=== PATIENT | female | born 1950 | race Caucasian/White ===

== ENCOUNTER → 2019-02-12 | Outpatient (CLI) | payer MEDICARE | END | disposition home or self-care (01) | LOC: OIH 08:25 | PROVIDERS: ATTEND Internal Medicine | DX: J44.9 Chronic obstructive pulmonary disease, unspecified (principal); I51.7 Cardiomegaly | CPT/HCPCS: 71046 ==

== ENCOUNTER → 2019-05-28 | Outpatient (CLI) | payer MEDICARE ==
[~2019-05-28] MED LIST: ALBUTEROL SULFATE 0.083% 2.5 MG/3 ML INH IH ONE
== END | disposition home or self-care (01) ==
LOC: RESP 08:53
PROVIDERS: ATTEND Internal Medicine
DX: J44.9 Chronic obstructive pulmonary disease, unspecified (principal); F17.200 Nicotine dependence, unspecified, uncomplicated
CPT/HCPCS: 94060; 94727; 94729

== ENCOUNTER 2020-08-20 10:48 | Observation (INO) | payer MEDICARE ==
[~2020-08-20] VITALS: Ht 162.6 cm; Wt 119.8 kg
[2020-08-20 11:20] LABS: BASOPHILS % (AUTO) 0.5 % (0.0-5.0); EOSINOPHILS % (AUTO) 1.1 % (0.0-8.0); HEMATOCRIT 36.3 % (36-48); LYMPHOCYTES % (AUTO) 8.3 % (21.0-51.0); MEAN CORPUSCULAR HEMOGLOBIN 23.2 pg (27.0-33.0); MEAN CORPUSCULAR HGB CONC 29.8 g/dL (32.0-36.0); MEAN CORPUSCULAR VOLUME 77.9 fL (79-99); NEUTROPHILS % (AUTO) 81.9 % (40.0-77.0); PLATELET COUNT (AUTO) 236 K/uL (130-400); RED BLOOD CELL COUNT(AUTO) 4.66 MIL/uL (4.00-5.50); RED CELL DISTRIBUTION WIDTH 16.6 % (11.0-15.5); WHITE BLOOD COUNT (AUTO) 8.1 K/uL (4.8-10.8)
[2020-08-20 11:40] LABS: ALBUMIN 3.4 g/dL (3.5-5.0); BILIRUBIN,TOTAL 0.5 mg/dL (0.2-1.0); CREATININE 1.1 mg/dL (0.5-1.5); POTASSIUM 4.3 mmol/L (3.5-5.1); TOTAL PROTEIN, SERUM 7.3 g/dL (6.0-8.3)
[2020-08-20 11:44] LABS: B-TYPE NATRIURETIC PEPTIDE 118 pg/mL (0-100)
[2020-08-20] MEDS ORDERED: METHYLPREDNISOLONE SOD SUCC 125MG/2ML VIAL ONE (11:55)
[2020-08-20] MEDS ORDERED: ALBUTEROL INHALER 90MCG/INH IH ONE (11:55)
[2020-08-20] MEDS ORDERED: FUROSEMIDE 10 MG/ML 2ML VIAL ONE (13:11)
[2020-08-20] MEDS: CEFTRIAXONE SODIUM 1 GM IVP SCH (14:15)
[2020-08-20 14:29] LABS: HEMOGLOBIN A1C 6.1 % (4.0-6.0)
[2020-08-20] MEDS ORDERED: ALBUTEROL INHALER 90MCG/INH IH PRN (14:30)
[2020-08-20 14:44] LABS: MAGNESIUM 1.7 mg/dL (1.80-2.40); THYROID STIMULATING HORMONE 6.02 uIU/mL (0.36-3.74)
[2020-08-20 14:56] LABS: % IRON SATURATION 6.2 % (22-44)
[2020-08-20] MEDS ORDERED: MAGNESIUM 2GM PREMIX 50ML 50 ML IV SCH (15:00)
[2020-08-20] MEDS ORDERED: MAGNESIUM 2GM PREMIX 50ML 50 ML IV ONE (15:16)
[2020-08-20] MEDS ORDERED: CEFTRIAXONE SODIUM 1 GM ONE (15:16)
[2020-08-20] MEDS: INSULIN HUMULIN R 100 UNIT/ML 3ML SQ SCH ×2 (16:30→21:00)
[2020-08-20] MEDS: FUROSEMIDE 10 MG/ML 2ML VIAL IV SCH (19:00)
[2020-08-20] MEDS ORDERED: DOXYCYCLINE HYCLATE 100 MG TABLET PO ONE (20:26)
[2020-08-20] MEDS ORDERED: ATORVASTATIN CALCIUM 20 MG TABLET ONE (20:26)
[2020-08-20] MEDS ORDERED: PANTOPRAZOLE SODIUM 40 MG TABLET.DR ONE (20:26)
[2020-08-20] MEDS ORDERED: INSULIN HUMULIN R 100 UNIT/ML 3ML ONE (20:28)
[2020-08-20] MEDS: ATORVASTATIN CALCIUM 20 MG TABLET PO SCH (21:00)
[2020-08-20] MEDS: PANTOPRAZOLE SODIUM 40 MG TABLET.DR PO SCH (21:00)
[2020-08-20] MEDS: APIXABAN 5 MG TABLET PO SCH (21:00)
[2020-08-20] MEDS: DOXYCYCLINE HYCLATE 100 MG TABLET PO SCH (21:00)
[2020-08-20 21:40] LABS: CREATININE 1.1 mg/dL (0.5-1.5); MAGNESIUM 2.3 mg/dL (1.80-2.40); POTASSIUM 4.6 mmol/L (3.5-5.1)
[2020-08-20 23:00] VITALS: BP 138/76
[2020-08-20] MEDS ORDERED: METF-444 PO (23:01)
[2020-08-20] MEDS ORDERED: UBID100C45 PO (23:01)
[2020-08-20] MEDS ORDERED: VIT1TABL66 PO (23:01)
[2020-08-20] MEDS ORDERED: FLUT1BLS3 IH (23:01)
[2020-08-20] MEDS ORDERED: POTA20TA12 PO (23:01)
[2020-08-20] MEDS ORDERED: PRAV40TA3 PO (23:01)
[2020-08-20] MEDS ORDERED: SERT100T PO (23:01)
[2020-08-20] MEDS ORDERED: APIX5TAB PO (23:01)
[2020-08-20] MEDS ORDERED: OLME5TAB PO (23:01)
[2020-08-20] MEDS ORDERED: DILT180C86 PO (23:01)
[2020-08-20] MEDS ORDERED: THYROXINE PO (23:01)
[2020-08-21] MEDS ORDERED: DILTIAZEM HCL 120 MG CAP.SR.24H PO SCH (00:15)
[2020-08-21] MEDS ORDERED: DILTIAZEM HCL 180 MG CAP.SR.24H PO ONE (00:25)
[2020-08-21] MEDS ORDERED: DILTIAZEM HCL 180 MG CAP.SR.24H PO SCH ×3 (00:30→21:00)
[2020-08-21] MEDS ORDERED: PHARMACY COMMUNICATION MISC SCH (01:00)
[2020-08-21 04:00] VITALS: BP 134/65
[2020-08-21] MEDS: INSULIN HUMULIN R 100 UNIT/ML 3ML SQ SCH ×4 (05:48→21:00)
[2020-08-21] MEDS: FUROSEMIDE 10 MG/ML 2ML VIAL IV SCH ×2 (05:54→18:46)
[2020-08-21 06:16] LABS: BASOPHILS % (AUTO) 0.1 % (0.0-5.0); EOSINOPHILS % (AUTO) 0.1 % (0.0-8.0); HEMATOCRIT 34.9 % (36-48); LYMPHOCYTES % (AUTO) 3.5 % (21.0-51.0); MEAN CORPUSCULAR HEMOGLOBIN 22.8 pg (27.0-33.0); MEAN CORPUSCULAR HGB CONC 29.8 g/dL (32.0-36.0); MEAN CORPUSCULAR VOLUME 76.4 fL (79-99); MONOCYTES % (AUTO) 3.5 % (3.0-13.0); NEUTROPHILS % (AUTO) 92.3 % (40.0-77.0); PLATELET COUNT (AUTO) 253 K/uL (130-400); RED BLOOD CELL COUNT(AUTO) 4.57 MIL/uL (4.00-5.50); RED CELL DISTRIBUTION WIDTH 16.1 % (11.0-15.5); WHITE BLOOD COUNT (AUTO) 11.1 K/uL (4.8-10.8)
[2020-08-21 06:29] LABS: CREATININE 0.9 mg/dL (0.5-1.5); MAGNESIUM 2.2 mg/dL (1.80-2.40); POTASSIUM 4.6 mmol/L (3.5-5.1)
[2020-08-21 07:46] VITALS: BP 115/45
[2020-08-21] MEDS: PREDNISONE 20 MG TABLET PO SCH (08:59)
[2020-08-21] MEDS: DOXYCYCLINE HYCLATE 100 MG TABLET PO SCH ×2 (08:59→22:10)
[2020-08-21] MEDS: PANTOPRAZOLE SODIUM 40 MG TABLET.DR PO SCH ×2 (08:59→22:10)
[2020-08-21] MEDS: SERTRALINE HCL 50 MG TABLET PO SCH (08:59)
[2020-08-21] MEDS: APIXABAN 5 MG TABLET PO SCH ×2 (09:00→22:09)
[2020-08-21] MEDS: FLUTICASONE/VILANTEROL 1 EACH AER.POW.BA IH SCH (09:00)
[2020-08-21 11:23] VITALS: BP 121/46
[2020-08-21] MEDS: CEFTRIAXONE SODIUM 1 GM IVP SCH (15:11)
[2020-08-21] MEDS ORDERED: NON-FORMULARY MEDICATION 1 EACH (Fluticasone/Umeclidin/Vilanter (Trelegy Ellipta 100-62.5- IH SCH (16:15)
[2020-08-21 16:36] VITALS: BP 148/58
[2020-08-21 20:00] VITALS: BP 134/63
[2020-08-21] MEDS ORDERED: APIXABAN 5 MG TABLET PO SCH (21:00)
[2020-08-21] MEDS ORDERED: NON-FORMULARY MEDICATION 1 EACH (Pravastatin Sodium 40 MG) PO SCH (21:00)
[2020-08-21] MEDS ORDERED: NON-FORMULARY MEDICATION 1 EACH (Diltiazem HCl (Diltiazem ER) 180 MG) PO SCH (21:00)
[2020-08-21] MEDS ORDERED: THYROXINE PO SCH (21:00)
[2020-08-21] MEDS: ATORVASTATIN CALCIUM 20 MG TABLET PO SCH (22:10)
[2020-08-22] VITALS: BP 134/56
[2020-08-22 04:00] VITALS: BP 135/68
[2020-08-22] MEDS: FUROSEMIDE 10 MG/ML 2ML VIAL IV SCH (06:11)
[2020-08-22] MEDS: INSULIN HUMULIN R 100 UNIT/ML 3ML SQ SCH ×2 (07:30→11:30)
[2020-08-22 08:24] VITALS: BP 123/63
[2020-08-22] MEDS: SERTRALINE HCL 50 MG TABLET PO SCH (08:57)
[2020-08-22] MEDS: DOXYCYCLINE HYCLATE 100 MG TABLET PO SCH (08:57)
[2020-08-22] MEDS: PANTOPRAZOLE SODIUM 40 MG TABLET.DR PO SCH (08:57)
[2020-08-22] MEDS: PREDNISONE 20 MG TABLET PO SCH (08:58)
[2020-08-22] MEDS: APIXABAN 5 MG TABLET PO SCH (08:58)
[2020-08-22] MEDS: FLUTICASONE/VILANTEROL 1 EACH AER.POW.BA IH SCH (08:59)
[2020-08-22] MEDS ORDERED: LOSARTAN 50 MG TABLET PO SCH (09:00)
[2020-08-22] MEDS ORDERED: SERTRALINE HCL 150 MG PO SCH (09:00)
[2020-08-22 11:16] VITALS: BP 119/58
[2020-08-22] MEDS ORDERED: FURO40TA7 PO (11:52)
== END 2020-08-22 13:58 | disposition home or self-care (01) ==
LOC: EDH 10:48 → EDHIP 14:06 → 4CH 22:42
PROVIDERS: ADMIT Internal Medicine; ATTEND Internal Medicine
DX: I13.0 Hypertensive heart and chronic kidney disease with heart failure and stage 1 through stage 4 chronic kidney disease, or unspecified chronic kidney disease (principal); E11.22 Type 2 diabetes mellitus with diabetic chronic kidney disease; I50.33 Acute on chronic diastolic (congestive) heart failure; N18.30 Chronic kidney disease, stage 3 unspecified; Z20.828 Contact with and (suspected) exposure to other viral communicable diseases; J44.1 Chronic obstructive pulmonary disease with (acute) exacerbation; E87.2 Acidosis; J96.01 Acute respiratory failure with hypoxia; I48.20 Chronic atrial fibrillation, unspecified; I44.7 Left bundle-branch block, unspecified; E78.5 Hyperlipidemia, unspecified; E03.9 Hypothyroidism, unspecified; E66.01 Morbid (severe) obesity due to excess calories; T38.0X5A Adverse effect of glucocorticoids and synthetic analogues, initial encounter; E11.65 Type 2 diabetes mellitus with hyperglycemia; F17.200 Nicotine dependence, unspecified, uncomplicated; Z79.84 Long term (current) use of oral hypoglycemic drugs; Z79.51 Long term (current) use of inhaled steroids; Z79.899 Other long term (current) drug therapy; Z79.01 Long term (current) use of anticoagulants; Z68.42 Body mass index [BMI] 45.0-49.9, adult; X58.XXXA Exposure to other specified factors, initial encounter; Y93.89 Activity, other specified; Y92.89 Other specified places as the place of occurrence of the external cause
CPT/HCPCS: 36415; 71045 ×2; 80048 ×2; 80061; 82728; 82948 ×8; 83036; 83540; 83550; 83605; 83735 ×3; 84439; 84443; 84481; 84484 ×2; 85025; 87040; 93005; 93306; 93356; 93970; 96374; 96375; 96376 ×2; 99285; G0378 ×46; J0696 ×2; J1815; J1940 ×4; J2930; J3475; U0003

== ENCOUNTER 2021-03-29 12:13 | Observation (INO) | payer MEDICARE ==
[~2021-03-29] VITALS: Ht 162.6 cm; Wt 123.2 kg
[~2021-03-29 12:13] MED LIST changes: -ALBUTEROL SULFATE 0.083% 2.5 MG/3 ML INH IH ONE; +APIX5TAB PO; +DILT180C86 PO; +FLUT1BLS3 IH; +FURO40TA7 PO; +METF-444 PO; +OLME5TAB PO; +POTA20TA12 PO; +PRAV40TA3 PO; +SERT100T PO; +THYROXINE PO; +UBID100C45 PO; +VIT1TABL66 PO
[2021-03-29 14:57] VITALS: BP 119/87
[2021-03-29] MEDS ORDERED: ALBUTEROL INHALER 90MCG/INH IH PRN (15:30)
[2021-03-29 15:54] LABS: BASOPHILS % (AUTO) 0.5 % (0.0-5.0); EOSINOPHILS % (AUTO) 3.6 % (0.0-8.0); LYMPHOCYTES % (AUTO) 8.6 % (21.0-51.0); MEAN CORPUSCULAR HEMOGLOBIN 23.8 pg (27.0-33.0); MEAN CORPUSCULAR HGB CONC 29.8 g/dL (32.0-36.0); MEAN CORPUSCULAR VOLUME 79.9 fL (79-99); MONOCYTES % (AUTO) 6.9 % (3.0-13.0); NEUTROPHILS % (AUTO) 79.9 % (40.0-77.0); PLATELET COUNT (AUTO) 310 K/uL (130-400); RED BLOOD CELL COUNT(AUTO) 5.51 MIL/uL (4.00-5.50)
[2021-03-29 16:20] VITALS: BP 147/101
[2021-03-29 16:20] LABS: B-TYPE NATRIURETIC PEPTIDE 762 pg/mL (0-100)
[2021-03-29] MEDS ORDERED: NITROGLYCERIN 1GM OINT 1 INCH/1GM TD ONE (16:30)
[2021-03-29 16:46] LABS: POTASSIUM 3.7 mmol/L (3.5-5.1)
[2021-03-29 16:57] LABS: BILIRUBIN,TOTAL 0.9 mg/dL (0.2-1.0); CRP QUANTITATIVE 11.3 mg/L (0.00-9.0); TOTAL PROTEIN, SERUM 7.5 g/dL (6.0-8.3)
[2021-03-29 18:55] VITALS: BP 128/66
[2021-03-29 20:00] VITALS: BP 130/64
[2021-03-29] MEDS ORDERED: KCL 20 MEQ ERTAB PO PRN (20:30)
[2021-03-29] MEDS ORDERED: POTASSIUM CHLORIDE 10% ELIXIR 20 MEQ/15 ML UDCUP PO PRN (20:30)
[2021-03-29] MEDS ORDERED: POTASSIUM CHLORIDE 20MEQ/100ML 100 ML IV PRN (20:30)
[2021-03-29] MEDS ORDERED: FUROSEMIDE 40MG VIAL IV SCH (20:30)
[2021-03-29] MEDS ORDERED: LIDOCAINE HCL-MPF 1% 2ML VIAL IJ PRN (20:30)
[2021-03-29 22:00] VITALS: BP 130/63
[2021-03-30] VITALS (11 sets, daily range): BP systolic 111–147; BP diastolic 51–69
[2021-03-30] MEDS ORDERED: ACETAMINOPHEN 325 MG TAB PO PRN (02:30)
[2021-03-30 08:01] LABS: BASOPHILS % (AUTO) 0.4 % (0.0-5.0); EOSINOPHILS % (AUTO) 1.6 % (0.0-8.0); HEMATOCRIT 36.4 % (36-48); MEAN CORPUSCULAR HEMOGLOBIN 23.7 pg (27.0-33.0); MEAN CORPUSCULAR HGB CONC 29.1 g/dL (32.0-36.0); MEAN CORPUSCULAR VOLUME 81.4 fL (79-99); NEUTROPHILS % (AUTO) 80.6 % (40.0-77.0); PLATELET COUNT (AUTO) 217 K/uL (130-400); RED BLOOD CELL COUNT(AUTO) 4.47 MIL/uL (4.00-5.50); RED CELL DISTRIBUTION WIDTH 16.8 % (11.0-15.5); WHITE BLOOD COUNT (AUTO) 8.5 K/uL (4.8-10.8)
[2021-03-30 08:24] LABS: ALBUMIN 3.1 g/dL (3.5-5.0); BILIRUBIN,TOTAL 0.8 mg/dL (0.2-1.0); CREATININE 0.9 mg/dL (0.5-1.5); POTASSIUM 3.5 mmol/L (3.5-5.1); TOTAL PROTEIN, SERUM 6.3 g/dL (6.0-8.3)
[2021-03-30 09:48] LABS: INR 1.19 (0.85-1.15); PROTHROMBIN TIME 12.8 SEC (9.6-11.6)
[2021-03-30] MEDS: ASPIRIN 81 MG EC TAB PO SCH (10:02)
[2021-03-30] MEDS: FUROSEMIDE 40 MG TABLET PO SCH ×2 (10:02→21:04)
[2021-03-30] MEDS: ENOXAPARIN SODIUM 40 MG/0.4 ML SYRINGE SQ SCH (10:03)
[2021-03-31] VITALS: BP 146/59
[2021-03-31 04:00] VITALS: BP 108/69
[2021-03-31 08:00] VITALS: BP 85/64
[2021-03-31] MEDS: ENOXAPARIN SODIUM 40 MG/0.4 ML SYRINGE SQ SCH (09:11)
[2021-03-31] MEDS: FUROSEMIDE 40 MG TABLET PO SCH (09:11)
[2021-03-31] MEDS: ASPIRIN 81 MG EC TAB PO SCH (09:11)
== END 2021-03-31 11:00 | disposition home or self-care (01) ==
LOC: EDH 12:13 → EDHIP 17:07 → 3BH 03-30 22:04
PROVIDERS: ADMIT Internal Medicine; ATTEND Internal Medicine
DX: J44.1 Chronic obstructive pulmonary disease with (acute) exacerbation (principal); Z20.822 Contact with and (suspected) exposure to COVID-19; I11.0 Hypertensive heart disease with heart failure; I50.31 Acute diastolic (congestive) heart failure; I48.91 Unspecified atrial fibrillation; I25.10 Atherosclerotic heart disease of native coronary artery without angina pectoris; E03.9 Hypothyroidism, unspecified; E87.70 Fluid overload, unspecified; E66.9 Obesity, unspecified; E78.5 Hyperlipidemia, unspecified; E11.9 Type 2 diabetes mellitus without complications; E78.00 Pure hypercholesterolemia, unspecified; F17.200 Nicotine dependence, unspecified, uncomplicated; R09.02 Hypoxemia; Z79.84 Long term (current) use of oral hypoglycemic drugs; Z68.42 Body mass index [BMI] 45.0-49.9, adult
CPT/HCPCS: 36415; 71045; 80053; 82550; 83874; 83880; 84484; 85025; 85610; 86140; 87635; 93005; 96365; 96366; 96372; C9803; G0378; J1650; J1940

== ENCOUNTER 2021-04-18 02:05 | Observation (INO) | payer MEDICARE ==
[~2021-04-18] VITALS: Ht 162.6 cm; Wt 117.5 kg
[2021-04-18] VITALS (8 sets, daily range): BP systolic 105–144; BP diastolic 47–87
[2021-04-18 02:48] LABS: BASOPHILS % (AUTO) 0.6 % (0.0-5.0); EOSINOPHILS % (AUTO) 1.3 % (0.0-8.0); HEMATOCRIT 38.7 % (36-48); LYMPHOCYTES % (AUTO) 8.2 % (21.0-51.0); MEAN CORPUSCULAR HEMOGLOBIN 23.1 pg (27.0-33.0); MEAN CORPUSCULAR HGB CONC 29.5 g/dL (32.0-36.0); MEAN CORPUSCULAR VOLUME 78.5 fL (79-99); NEUTROPHILS % (AUTO) 82.6 % (40.0-77.0); PLATELET COUNT (AUTO) 366 K/uL (130-400); RED BLOOD CELL COUNT(AUTO) 4.93 MIL/uL (4.00-5.50); RED CELL DISTRIBUTION WIDTH 16.2 % (11.0-15.5); WHITE BLOOD COUNT (AUTO) 8.7 K/uL (4.8-10.8)
[2021-04-18] MEDS ORDERED: SOLU-MEDROL 125MG VIAL ONE (02:53)
[2021-04-18] MEDS ORDERED: SOLU-MEDROL 125MG VIAL IVP ONE (03:00)
[2021-04-18 03:05] LABS: ALBUMIN 3.1 g/dL (3.5-5.0); TOTAL PROTEIN, SERUM 6.9 g/dL (6.0-8.3)
[2021-04-18 03:21] LABS: APPEARANCE,URINE Clear (CLEAR); BILIRUBIN,URINE Negative (NEGATIVE); COLOR,URINE Yellow (YELLOW); GLUCOSE, URINE (UA) Negative (NEGATIVE); KETONES,URINE Negative (NEGATIVE); LEUKOCYTE ESTERASE ,URINE Negative (NEGATIVE); NITRATE,URINE Negative (NEGATIVE); OCCULT BLOOD,URINE Negative (NEGATIVE); PROTEIN,URINE Negative (NEGATIVE)
[2021-04-18 03:23] LABS: ABG BASE EXCESS 11.1 mmol/L (-2.0-3.0); ABG HCO3 37.9 mmol/L (21.0-28.0); ABG OXYGEN SATURATION 95.6 % (95.0-99.0); ABG PCO2 58 mmHg (32-45)
[2021-04-18 03:40] LABS: B-TYPE NATRIURETIC PEPTIDE 401 pg/mL (0-100)
[2021-04-18] MEDS ORDERED: FURO40TA5 PO (03:43)
[2021-04-18] MEDS ORDERED: DILT120T PO (03:43)
[2021-04-18] MEDS ORDERED: VIT1TABL66 PO (03:43)
[2021-04-18] MEDS ORDERED: METF-444 PO (03:43)
[2021-04-18] MEDS ORDERED: SERT100T PO (03:43)
[2021-04-18] MEDS ORDERED: OLME5TAB PO (03:43)
[2021-04-18] MEDS ORDERED: FLUT1BLS3 IH (03:43)
[2021-04-18] MEDS ORDERED: POTA20TA12 PO (03:43)
[2021-04-18] MEDS ORDERED: UBID100C10 PO (03:43)
[2021-04-18] MEDS ORDERED: PRAV40TA3 PO (03:43)
[2021-04-18] MEDS ORDERED: APIX5TAB PO (03:43)
[2021-04-18] MEDS ORDERED: FUROSEMIDE 40MG VIAL IV ONE (05:30)
[2021-04-18] MEDS ORDERED: FUROSEMIDE 40MG VIAL ONE (05:43)
[2021-04-18 07:05] LABS: BASOPHILS % (AUTO) 0.1 % (0.0-5.0); HEMATOCRIT 39.2 % (36-48); LYMPHOCYTES % (AUTO) 2.3 % (21.0-51.0); MEAN CORPUSCULAR HEMOGLOBIN 22.8 pg (27.0-33.0); MEAN CORPUSCULAR HGB CONC 29.1 g/dL (32.0-36.0); MEAN CORPUSCULAR VOLUME 78.6 fL (79-99); NEUTROPHILS % (AUTO) 96.4 % (40.0-77.0); PLATELET COUNT (AUTO) 310 K/uL (130-400); RED BLOOD CELL COUNT(AUTO) 4.99 MIL/uL (4.00-5.50); RED CELL DISTRIBUTION WIDTH 16.2 % (11.0-15.5); WHITE BLOOD COUNT (AUTO) 9.5 K/uL (4.8-10.8)
[2021-04-18 07:41] LABS: ALBUMIN 3.1 g/dL (3.5-5.0); POTASSIUM 3.5 mmol/L (3.5-5.1); TOTAL PROTEIN, SERUM 6.8 g/dL (6.0-8.3)
[2021-04-18] MEDS ORDERED: IPRATROPIUM/ALBUTEROL SULFATE 3 ML SOLUTION IH ONE (09:45)
[2021-04-18] MEDS: IPRATROPIUM/ALBUTEROL SULFATE 3 ML SOLUTION IH SCH ×4 (09:52→22:41)
[2021-04-18] MEDS: INSULIN HUMULIN R 100 UNIT/ML 3ML SQ SCH ×3 (12:33→20:43)
[2021-04-18] MEDS: ATORVASTATIN 10 MG TABLET PO SCH (20:25)
[2021-04-18] MEDS: DILTIAZEM 180MG SR CAP PO SCH (20:25)
[2021-04-18] MEDS: APIXABAN 5 MG TABLET PO SCH (20:26)
[2021-04-19] VITALS (7 sets, daily range): BP systolic 97–144; BP diastolic 48–67
[2021-04-19] MEDS: IPRATROPIUM/ALBUTEROL SULFATE 3 ML SOLUTION IH SCH ×8 (02:23→22:45)
[2021-04-19 05:28] LABS: HEMATOCRIT 36.4 % (36-48); MEAN CORPUSCULAR HEMOGLOBIN 22.9 pg (27.0-33.0); MEAN CORPUSCULAR VOLUME 81.8 fL (79-99); RED BLOOD CELL COUNT(AUTO) 4.45 MIL/uL (4.00-5.50); WHITE BLOOD COUNT (AUTO) 9.7 K/uL (4.8-10.8)
[2021-04-19] MEDS: INSULIN HUMULIN R 100 UNIT/ML 3ML SQ SCH ×4 (05:33→20:07)
[2021-04-19 05:48] LABS: CREATININE 0.9 mg/dL (0.5-1.5); POTASSIUM 3.7 mmol/L (3.5-5.1)
[2021-04-19] MEDS ORDERED: DILTIAZEM 50MG VIAL IV ONE (06:20)
[2021-04-19] MEDS: FUROSEMIDE 40MG VIAL IV SCH ×2 (06:24→18:19)
[2021-04-19] MEDS ORDERED: IPRATROPIUM/ALBUTEROL SULFATE 3 ML SOLUTION IH PRN (06:30)
[2021-04-19] MEDS ORDERED: BENZONATATE 100 MG CAPSULE PO PRN (06:30)
[2021-04-19] MEDS: DILTIAZEM 25MG INJ IVP SCH ×2 (06:30→07:04)
[2021-04-19] MEDS: BERBERINE HCL PO SCH (09:00)
[2021-04-19] MEDS ORDERED: FUROSEMIDE 40 MG TABLET PO SCH (09:00)
[2021-04-19] MEDS: [UNRECOGNIZED DRUG - OTHER] PO SCH (09:00)
[2021-04-19] MEDS: UBIDECARENONE 100 MG PO SCH (09:00)
[2021-04-19] MEDS: **HM**(Fluticasone/Umeclidin/Vilanter (Trelegy Ellipta 100-62.5- IH SCH (09:00)
[2021-04-19] MEDS: HOPS PO SCH (09:00)
[2021-04-19] MEDS: VIT D3 PO SCH (09:00)
[2021-04-19] MEDS: METFORMIN HCL 500 MG TABLET PO SCH (09:27)
[2021-04-19] MEDS: SERTRALINE HCL 50 MG TABLET PO SCH (09:27)
[2021-04-19] MEDS: APIXABAN 5 MG TABLET PO SCH ×2 (09:27→20:06)
[2021-04-19] MEDS: LOSARTAN 25 MG TABLET PO SCH (09:28)
[2021-04-19] MEDS: KCL 20 MEQ ERTAB PO SCH (09:28)
[2021-04-19] MEDS ORDERED: ACETAMINOPHEN 325 MG TAB PO PRN (11:00)
[2021-04-19] MEDS: SOLU-MEDROL 125MG VIAL IVP SCH (20:05)
[2021-04-19] MEDS: DILTIAZEM 180MG SR CAP PO SCH (20:06)
[2021-04-19] MEDS: ATORVASTATIN 10 MG TABLET PO SCH (20:06)
[2021-04-20] VITALS: BP 137/68
[2021-04-20 04:00] VITALS: BP 134/50
[2021-04-20] MEDS: FUROSEMIDE 40MG VIAL IV SCH ×2 (05:08→18:24)
[2021-04-20] MEDS: INSULIN HUMULIN R 100 UNIT/ML 3ML SQ SCH ×4 (06:03→21:00)
[2021-04-20] MEDS ORDERED: FUROSEMIDE 40MG VIAL IV SCH (07:00)
[2021-04-20 07:30] VITALS: BP 126/52
[2021-04-20] MEDS: IPRATROPIUM/ALBUTEROL SULFATE 3 ML SOLUTION IH SCH ×4 (07:54→22:32)
[2021-04-20] MEDS: [UNRECOGNIZED DRUG - OTHER] PO SCH (09:00)
[2021-04-20] MEDS: HOPS PO SCH (09:00)
[2021-04-20] MEDS: VIT D3 PO SCH (09:00)
[2021-04-20] MEDS: UBIDECARENONE 100 MG PO SCH (09:00)
[2021-04-20] MEDS: BERBERINE HCL PO SCH (09:00)
[2021-04-20] MEDS: **HM**(Fluticasone/Umeclidin/Vilanter (Trelegy Ellipta 100-62.5- IH SCH (09:00)
[2021-04-20] MEDS: METFORMIN HCL 500 MG TABLET PO SCH (09:12)
[2021-04-20] MEDS: LOSARTAN 25 MG TABLET PO SCH (09:12)
[2021-04-20] MEDS: APIXABAN 5 MG TABLET PO SCH ×2 (09:13→21:23)
[2021-04-20] MEDS: SERTRALINE HCL 50 MG TABLET PO SCH (09:15)
[2021-04-20] MEDS: SOLU-MEDROL 125MG VIAL IVP SCH ×2 (09:16→21:23)
[2021-04-20] MEDS: KCL 20 MEQ ERTAB PO SCH (09:16)
[2021-04-20 11:00] VITALS: BP 132/69
[2021-04-20 15:42] VITALS: BP 124/55
[2021-04-20 19:00] VITALS: BP 124/54
[2021-04-20] MEDS: ATORVASTATIN 10 MG TABLET PO SCH (21:23)
[2021-04-20] MEDS: DILTIAZEM 180MG SR CAP PO SCH (21:23)
[2021-04-21 00:02] VITALS: BP 105/66
[2021-04-21] MEDS: IPRATROPIUM/ALBUTEROL SULFATE 3 ML SOLUTION IH SCH ×4 (02:26→13:33)
[2021-04-21 04:24] VITALS: BP 129/61
[2021-04-21] MEDS: FUROSEMIDE 40MG VIAL IV SCH (05:44)
[2021-04-21] MEDS: INSULIN HUMULIN R 100 UNIT/ML 3ML SQ SCH ×3 (05:45→11:47)
[2021-04-21 07:30] VITALS: BP 111/74
[2021-04-21] MEDS: [UNRECOGNIZED DRUG - OTHER] PO SCH (09:00)
[2021-04-21] MEDS: HOPS PO SCH (09:00)
[2021-04-21] MEDS: UBIDECARENONE 100 MG PO SCH (09:00)
[2021-04-21] MEDS: BERBERINE HCL PO SCH (09:00)
[2021-04-21] MEDS: VIT D3 PO SCH (09:00)
[2021-04-21] MEDS ORDERED: SOLU-MEDROL 40MG VIAL IVP SCH (09:00)
[2021-04-21] MEDS: **HM**(Fluticasone/Umeclidin/Vilanter (Trelegy Ellipta 100-62.5- IH SCH (09:00)
[2021-04-21] MEDS: SERTRALINE HCL 50 MG TABLET PO SCH (10:04)
[2021-04-21] MEDS: LOSARTAN 25 MG TABLET PO SCH (10:04)
[2021-04-21] MEDS: METFORMIN HCL 500 MG TABLET PO SCH (10:04)
[2021-04-21] MEDS: APIXABAN 5 MG TABLET PO SCH (10:04)
[2021-04-21] MEDS: KCL 20 MEQ ERTAB PO SCH (10:05)
[2021-04-21 11:00] VITALS: BP 129/57
== END 2021-04-21 14:15 | disposition home or self-care (01) ==
LOC: EDH 02:05 → EDHIP 04:58 → 3DH 08:11
PROVIDERS: ADMIT Internal Medicine; ATTEND Internal Medicine
DX: J96.91 Respiratory failure, unspecified with hypoxia (principal); Z20.822 Contact with and (suspected) exposure to COVID-19; I11.0 Hypertensive heart disease with heart failure; I50.32 Chronic diastolic (congestive) heart failure; J44.1 Chronic obstructive pulmonary disease with (acute) exacerbation; I48.0 Paroxysmal atrial fibrillation; I25.10 Atherosclerotic heart disease of native coronary artery without angina pectoris; E11.9 Type 2 diabetes mellitus without complications; E66.9 Obesity, unspecified; E03.9 Hypothyroidism, unspecified; E78.5 Hyperlipidemia, unspecified; E87.70 Fluid overload, unspecified; F17.200 Nicotine dependence, unspecified, uncomplicated; Z79.01 Long term (current) use of anticoagulants; Z90.710 Acquired absence of both cervix and uterus; Z99.81 Dependence on supplemental oxygen; Z79.84 Long term (current) use of oral hypoglycemic drugs; Z68.41 Body mass index [BMI] 40.0-44.9, adult
CPT/HCPCS: 36415 ×2; 36600; 71045 ×2; 80048; 80053 ×2; 81003; 82550; 82803; 82948 ×13; 83880; 84484; 85025 ×2; 85027; 87635; 93005; 94640 ×17; 94660; 94664 ×2; 94760 ×2; 96374; 96375; 96376 ×3; 99285; C9803; G0378 ×76; J1815 ×2; J1940 ×7; J2920; J2930 ×4; J3490 ×2

== ENCOUNTER 2021-06-15 11:26 | Inpatient (IN) | payer MEDICARE ==
[~2021-06-15] VITALS: Ht 160 cm; Wt 105.5 kg
[2021-06-15] MEDS: IPRATROPIUM/ALBUTEROL SULFATE 3 ML SOLUTION IH SCH (00:36)
[~2021-06-15 11:26] MED LIST changes: +DILT120T PO; -DILT180C86 PO; +FURO40TA5 PO; -FURO40TA7 PO; +POTA-193 PO; -POTA20TA12 PO; -THYROXINE PO; +UBID100C10 PO; -UBID100C45 PO
[2021-06-15 12:01] LABS: BASOPHILS % (AUTO) 0.6 % (0.0-5.0); EOSINOPHILS % (AUTO) 0.9 % (0.0-8.0); HEMATOCRIT 38.1 % (36-48); LYMPHOCYTES % (AUTO) 8.2 % (21.0-51.0); MEAN CORPUSCULAR HGB CONC 28.9 g/dL (32.0-36.0); MEAN CORPUSCULAR VOLUME 79.7 fL (79-99); MONOCYTES % (AUTO) 8.1 % (3.0-13.0); NEUTROPHILS % (AUTO) 81.9 % (40.0-77.0); PLATELET COUNT (AUTO) 231 K/uL (130-400); RED BLOOD CELL COUNT(AUTO) 4.78 MIL/uL (4.00-5.50); RED CELL DISTRIBUTION WIDTH 18.8 % (11.0-15.5); WHITE BLOOD COUNT (AUTO) 7.9 K/uL (4.8-10.8)
[2021-06-15 12:15] LABS: CREATININE 1.1 mg/dL (0.5-1.5)
[2021-06-15 12:17] LABS: INR 1.23 (0.85-1.15); PROTHROMBIN TIME 13.2 SEC (9.6-11.6)
[2021-06-15 12:24] LABS: ALBUMIN 3.6 g/dL (3.5-5.0); BILIRUBIN,TOTAL 0.9 mg/dL (0.2-1.0); TOTAL PROTEIN, SERUM 6.9 g/dL (6.0-8.3)
[2021-06-15 12:30] LABS: B-TYPE NATRIURETIC PEPTIDE 294 pg/mL (0-100)
[2021-06-15 13:30] LABS: ABG BASE EXCESS 8.1 mmol/L (-2.0-3.0); ABG HCO3 35.3 mmol/L (21.0-28.0); ABG OXYGEN SATURATION 72.2 % (95.0-99.0); ABG PCO2 59 mmHg (32-45)
[2021-06-15] MEDS ORDERED: SOLU-MEDROL 125MG VIAL IVP ONE (14:30)
[2021-06-15] MEDS ORDERED: IPRATROPIUM/ALBUTEROL SULFATE 3 ML SOLUTION IH ONE (14:30)
[2021-06-15] MEDS ORDERED: FUROSEMIDE 40MG VIAL IV ONE (17:00)
[2021-06-15] MEDS: CEFTRIAXONE 1G VIAL IVP SCH (17:00)
[2021-06-15] MEDS: SOLU-MEDROL 125MG VIAL IVP SCH (17:00)
[2021-06-15] MEDS ORDERED: FERR324T4 PO (18:46)
[2021-06-15] MEDS ORDERED: LEVO5TAB13 PO (18:46)
[2021-06-15] MEDS ORDERED: SERT-440 PO (18:46)
[2021-06-15] MEDS ORDERED: PRAV20TA4 PO (18:53)
[2021-06-15] MEDS ORDERED: LEVO125T11 PO (18:53)
[2021-06-15] MEDS ORDERED: FUROSEMIDE 40MG VIAL ONE (19:03)
[2021-06-15] MEDS: DILTIAZEM 180MG SR CAP PO SCH (22:19)
[2021-06-15 23:41] VITALS: BP 135/63
[2021-06-16] MEDS: SOLU-MEDROL 125MG VIAL IVP SCH ×3 (02:30→16:52)
[2021-06-16 04:02] VITALS: BP 127/54
[2021-06-16] MEDS ORDERED: ACETAMINOPHEN 325 MG TAB PO ONE (05:00)
[2021-06-16 05:40] LABS: HEMATOCRIT 37.1 % (36-48); MEAN CORPUSCULAR HEMOGLOBIN 22.7 pg (27.0-33.0); MEAN CORPUSCULAR HGB CONC 29.1 g/dL (32.0-36.0); MEAN CORPUSCULAR VOLUME 78.1 fL (79-99); PLATELET COUNT (AUTO) 225 K/uL (130-400); RED BLOOD CELL COUNT(AUTO) 4.75 MIL/uL (4.00-5.50); RED CELL DISTRIBUTION WIDTH 18.4 % (11.0-15.5); WHITE BLOOD COUNT (AUTO) 6.8 K/uL (4.8-10.8)
[2021-06-16 05:42] LABS: BASOPHILS % (AUTO) 0.1 % (0.0-5.0); EOSINOPHILS % (AUTO) 0.1 % (0.0-8.0); LYMPHOCYTES % (AUTO) 3.5 % (21.0-51.0); MONOCYTES % (AUTO) 0.7 % (3.0-13.0); NEUTROPHILS % (AUTO) 94.9 % (40.0-77.0)
[2021-06-16] MEDS ORDERED: DEXTROSE 50%-WATER 50 ML DISP.SYRIN IV PRN (06:00)
[2021-06-16] MEDS ORDERED: GLUCAGON 1MG KIT 1 MG ML IM PRN (06:00)
[2021-06-16] MEDS: IPRATROPIUM/ALBUTEROL SULFATE 3 ML SOLUTION IH SCH ×3 (06:19→18:50)
[2021-06-16] MEDS ORDERED: POTASSIUM CHLORIDE 20MEQ/100ML 100 ML IV PRN (06:30)
[2021-06-16] MEDS ORDERED: LIDOCAINE HCL-MPF 1% 2ML VIAL IV PRN (06:30)
[2021-06-16] MEDS ORDERED: POTASSIUM CHLORIDE 10% ELIXIR 20 MEQ/15 ML UDCUP PO PRN (06:30)
[2021-06-16 06:31] LABS: ALBUMIN 3.4 g/dL (3.5-5.0); BILIRUBIN,TOTAL 0.6 mg/dL (0.2-1.0); CREATININE 0.9 mg/dL (0.5-1.5); POTASSIUM 4.1 mmol/L (3.5-5.1); TOTAL PROTEIN, SERUM 6.8 g/dL (6.0-8.3)
[2021-06-16] MEDS: INSULIN HUMULIN R 100 UNIT/ML 3ML SQ SCH ×4 (06:42→19:58)
[2021-06-16 08:37] VITALS: BP 111/57
[2021-06-16] MEDS ORDERED: FUROSEMIDE 40MG VIAL IV SCH (09:00)
[2021-06-16] MEDS: HOPS PO SCH (09:00)
[2021-06-16] MEDS: VIT D3 PO SCH (09:00)
[2021-06-16] MEDS: [UNRECOGNIZED DRUG - OTHER] PO SCH (09:00)
[2021-06-16] MEDS: FUROSEMIDE 40 MG TABLET PO SCH (09:00)
[2021-06-16] MEDS: BERBERINE HCL PO SCH (09:00)
[2021-06-16] MEDS: METFORMIN HCL 500 MG TABLET PO SCH (09:37)
[2021-06-16] MEDS: KCL 20 MEQ ERTAB PO SCH (09:37)
[2021-06-16] MEDS: ENOXAPARIN SODIUM 40 MG/0.4 ML SYRINGE SQ SCH (09:39)
[2021-06-16 12:04] VITALS: BP 121/49
[2021-06-16 16:47] VITALS: BP 126/46
[2021-06-16] MEDS: CEFTRIAXONE 1G VIAL IVP SCH (16:52)
[2021-06-16 19:00] VITALS: BP 132/91
[2021-06-16] MEDS: DILTIAZEM 180MG SR CAP PO SCH (20:10)
[2021-06-17] VITALS: BP 136/54
[2021-06-17] MEDS: IPRATROPIUM/ALBUTEROL SULFATE 3 ML SOLUTION IH SCH ×3 (00:38→11:16)
[2021-06-17] MEDS: SOLU-MEDROL 125MG VIAL IVP SCH ×2 (01:12→08:09)
[2021-06-17] MEDS: ACETAMINOPHEN 325 MG TAB PO PRN (01:12)
[2021-06-17 04:00] VITALS: BP 156/70
[2021-06-17 04:19] LABS: BASOPHILS % (AUTO) 0.1 % (0.0-5.0); HEMATOCRIT 38.2 % (36-48); LYMPHOCYTES % (AUTO) 2.5 % (21.0-51.0); MEAN CORPUSCULAR HEMOGLOBIN 22.8 pg (27.0-33.0); MEAN CORPUSCULAR HGB CONC 28.5 g/dL (32.0-36.0); MEAN CORPUSCULAR VOLUME 79.9 fL (79-99); MONOCYTES % (AUTO) 3.4 % (3.0-13.0); NEUTROPHILS % (AUTO) 93.5 % (40.0-77.0); PLATELET COUNT (AUTO) 241 K/uL (130-400); RED BLOOD CELL COUNT(AUTO) 4.78 MIL/uL (4.00-5.50); RED CELL DISTRIBUTION WIDTH 18.6 % (11.0-15.5)
[2021-06-17 04:38] LABS: ALBUMIN 3.3 g/dL (3.5-5.0); BILIRUBIN,TOTAL 0.5 mg/dL (0.2-1.0); CREATININE 0.9 mg/dL (0.5-1.5); POTASSIUM 4.4 mmol/L (3.5-5.1); TOTAL PROTEIN, SERUM 6.7 g/dL (6.0-8.3)
[2021-06-17] MEDS: INSULIN HUMULIN R 100 UNIT/ML 3ML SQ SCH ×4 (06:53→20:18)
[2021-06-17] MEDS ORDERED: IOHEXOL-350 50ML VIAL IV ONE (08:05)
[2021-06-17] MEDS: LEVOFLOXACIN 750 MG/D5W 150 ML 150 ML IV SCH (08:07)
[2021-06-17] MEDS: ENOXAPARIN SODIUM 40 MG/0.4 ML SYRINGE SQ SCH (08:11)
[2021-06-17] MEDS: KCL 20 MEQ ERTAB PO SCH (08:12)
[2021-06-17] MEDS: HOPS PO SCH (08:12)
[2021-06-17] MEDS: BERBERINE HCL PO SCH (08:12)
[2021-06-17] MEDS: METFORMIN HCL 500 MG TABLET PO SCH (08:12)
[2021-06-17] MEDS: VIT D3 PO SCH (08:12)
[2021-06-17] MEDS: FUROSEMIDE 40 MG TABLET PO SCH (08:12)
[2021-06-17] MEDS: [UNRECOGNIZED DRUG - OTHER] PO SCH (08:12)
[2021-06-17 08:46] VITALS: BP 153/70
[2021-06-17 11:10] LABS: APPEARANCE,URINE Clear (CLEAR); BILIRUBIN,URINE Negative (NEGATIVE); COLOR,URINE Yellow (YELLOW); GLUCOSE, URINE (UA) Negative (NEGATIVE); KETONES,URINE Negative (NEGATIVE); LEUKOCYTE ESTERASE ,URINE Negative (NEGATIVE); NITRATE,URINE Negative (NEGATIVE); OCCULT BLOOD,URINE Negative (NEGATIVE); PROTEIN,URINE Negative (NEGATIVE)
[2021-06-17 12:31] VITALS: BP 136/80
[2021-06-17] MEDS: FUROSEMIDE 40MG VIAL IV SCH (13:52)
[2021-06-17 16:30] VITALS: BP 126/60
[2021-06-17] MEDS ORDERED: METOPROLOL TARTRATE 1 MG/ML 5ML VIAL IV SCH (16:30)
[2021-06-17] MEDS ORDERED: METOPROLOL TARTRATE 25 MG TAB PO SCH (16:30)
[2021-06-17 16:43] LABS: ABG BASE EXCESS 14.6 mmol/L (-2.0-3.0); ABG HCO3 41.5 mmol/L (21.0-28.0); ABG OXYGEN SATURATION 93.1 % (95.0-99.0); ABG PCO2 59 mmHg (32-45)
[2021-06-17] MEDS: CEFTRIAXONE 1G VIAL IVP SCH (17:50)
[2021-06-17] MEDS: SOLU-MEDROL 40MG VIAL IVP SCH ×2 (17:53→21:02)
[2021-06-17] MEDS: IPRATROPIUM 0.5 MG/2.5 ML INH IH SCH (19:00)
[2021-06-17 20:20] VITALS: BP 139/68
[2021-06-17] MEDS: METOPROLOL TARTRATE 25 MG TAB PO SCH (21:01)
[2021-06-17] MEDS: DILTIAZEM 180MG SR CAP PO SCH (21:02)
[2021-06-18] VITALS (7 sets, daily range): BP systolic 106–157; BP diastolic 57–74
[2021-06-18] MEDS: IPRATROPIUM 0.5 MG/2.5 ML INH IH SCH ×4 (00:28→18:32)
[2021-06-18] MEDS: FUROSEMIDE 40MG VIAL IV SCH ×2 (01:25→12:50)
[2021-06-18 05:32] LABS: HEMATOCRIT 40.2 % (36-48); MEAN CORPUSCULAR HEMOGLOBIN 22.6 pg (27.0-33.0); MEAN CORPUSCULAR HGB CONC 29.1 g/dL (32.0-36.0); MEAN CORPUSCULAR VOLUME 77.6 fL (79-99); RED BLOOD CELL COUNT(AUTO) 5.18 MIL/uL (4.00-5.50); RED CELL DISTRIBUTION WIDTH 18.6 % (11.0-15.5); WHITE BLOOD COUNT (AUTO) 12.5 K/uL (4.8-10.8)
[2021-06-18] MEDS: INSULIN HUMULIN R 100 UNIT/ML 3ML SQ SCH ×4 (05:34→20:59)
[2021-06-18 05:41] LABS: HEMOGLOBIN A1C 6.5 % (4.0-6.0)
[2021-06-18 05:53] LABS: ALBUMIN 3.4 g/dL (3.5-5.0); BILIRUBIN,TOTAL 0.6 mg/dL (0.2-1.0); CREATININE 0.9 mg/dL (0.5-1.5); THYROID STIMULATING HORMONE 3.65 uIU/mL (0.36-3.74); TOTAL PROTEIN, SERUM 6.7 g/dL (6.0-8.3)
[2021-06-18] MEDS: SOLU-MEDROL 40MG VIAL IVP SCH ×2 (05:58→12:50)
[2021-06-18] MEDS: ACETAMINOPHEN 325 MG TAB PO PRN (06:30)
[2021-06-18] MEDS: VIT D3 PO SCH (09:00)
[2021-06-18] MEDS: HOPS PO SCH (09:00)
[2021-06-18] MEDS: BERBERINE HCL PO SCH (09:00)
[2021-06-18] MEDS: [UNRECOGNIZED DRUG - OTHER] PO SCH (09:00)
[2021-06-18] MEDS: KCL 20 MEQ ERTAB PO SCH (09:00)
[2021-06-18] MEDS: LEVOFLOXACIN 750 MG/D5W 150 ML 150 ML IV SCH (09:12)
[2021-06-18] MEDS: ENOXAPARIN SODIUM 40 MG/0.4 ML SYRINGE SQ SCH (09:12)
[2021-06-18] MEDS: METOPROLOL TARTRATE 25 MG TAB PO SCH (09:13)
[2021-06-18] MEDS: METFORMIN HCL 500 MG TABLET PO SCH (09:13)
[2021-06-18] MEDS: CEFTRIAXONE 1G VIAL IVP SCH (18:05)
[2021-06-18] MEDS: DILTIAZEM 180MG SR CAP PO SCH (21:00)
[2021-06-19] MEDS: IPRATROPIUM 0.5 MG/2.5 ML INH IH SCH ×4 (00:26→18:18)
[2021-06-19] MEDS: FUROSEMIDE 40MG VIAL IV SCH ×2 (01:05→13:02)
[2021-06-19 04:09] VITALS: BP 135/63
[2021-06-19 05:13] LABS: BASOPHILS % (AUTO) 0.1 % (0.0-5.0); MEAN CORPUSCULAR HEMOGLOBIN 22.6 pg (27.0-33.0); MEAN CORPUSCULAR VOLUME 77.9 fL (79-99); NEUTROPHILS % (AUTO) 87.5 % (40.0-77.0); PLATELET COUNT (AUTO) 245 K/uL (130-400); RED BLOOD CELL COUNT(AUTO) 5.39 MIL/uL (4.00-5.50); RED CELL DISTRIBUTION WIDTH 18.6 % (11.0-15.5); WHITE BLOOD COUNT (AUTO) 11.1 K/uL (4.8-10.8)
[2021-06-19 05:31] LABS: POTASSIUM 3.7 mmol/L (3.5-5.1)
[2021-06-19] MEDS: INSULIN HUMULIN R 100 UNIT/ML 3ML SQ SCH ×4 (06:32→20:33)
[2021-06-19] MEDS ORDERED: DILTIAZEM 120MG SR CAP PO ONE (06:37)
[2021-06-19 08:49] VITALS: BP 133/59
[2021-06-19] MEDS: LEVOFLOXACIN 750 MG TABLET PO SCH (08:57)
[2021-06-19] MEDS: METFORMIN HCL 500 MG TABLET PO SCH (08:57)
[2021-06-19] MEDS: PREDNISONE 20 MG TABLET PO SCH (08:57)
[2021-06-19] MEDS: KCL 20 MEQ ERTAB PO SCH (08:58)
[2021-06-19] MEDS: VIT D3 PO SCH (08:59)
[2021-06-19] MEDS: HOPS PO SCH (08:59)
[2021-06-19] MEDS: BERBERINE HCL PO SCH (08:59)
[2021-06-19] MEDS: ENOXAPARIN SODIUM 40 MG/0.4 ML SYRINGE SQ SCH (08:59)
[2021-06-19] MEDS: [UNRECOGNIZED DRUG - OTHER] PO SCH (08:59)
[2021-06-19] MEDS ORDERED: DILTIAZEM 120MG SR CAP PO SCH (09:00)
[2021-06-19 12:00] VITALS: BP_SYST 111; BP_SYST 87; BP_DIAS 55
[2021-06-19 16:00] VITALS: BP_SYST 116; BP_SYST 87; BP_DIAS 55; BP_DIAS 67
[2021-06-19] MEDS ORDERED: APIXABAN 5 MG TABLET PO SCH (16:00)
[2021-06-19] MEDS ORDERED: DILTIAZEM 60MG TAB PO SCH ×2 (16:45→18:00)
[2021-06-19] MEDS: CEFTRIAXONE 1G VIAL IVP SCH (16:56)
[2021-06-19] MEDS: DILTIAZEM 60MG TAB PO SCH (19:47)
[2021-06-19 19:57] VITALS: BP 111/56
[2021-06-19 23:53] VITALS: BP 114/72
[2021-06-20] VITALS (9 sets, daily range): BP systolic 95–135; BP diastolic 43–69
[2021-06-20] MEDS: IPRATROPIUM 0.5 MG/2.5 ML INH IH SCH ×5 (00:42→23:29)
[2021-06-20] MEDS: DILTIAZEM 60MG TAB PO SCH ×4 (01:13→18:03)
[2021-06-20] MEDS: FUROSEMIDE 40MG VIAL IV SCH ×2 (02:37→12:52)
[2021-06-20] MEDS: INSULIN HUMULIN R 100 UNIT/ML 3ML SQ SCH ×4 (06:12→20:34)
[2021-06-20] MEDS: PREDNISONE 20 MG TABLET PO SCH (08:46)
[2021-06-20] MEDS: LEVOFLOXACIN 750 MG TABLET PO SCH (08:46)
[2021-06-20] MEDS: KCL 20 MEQ ERTAB PO SCH (08:46)
[2021-06-20] MEDS: METFORMIN HCL 500 MG TABLET PO SCH (08:46)
[2021-06-20] MEDS: APIXABAN 5 MG TABLET PO SCH ×2 (08:46→20:56)
[2021-06-20] MEDS: VIT D3 PO SCH (09:00)
[2021-06-20] MEDS: BERBERINE HCL PO SCH (09:00)
[2021-06-20] MEDS: HOPS PO SCH (09:00)
[2021-06-20] MEDS: [UNRECOGNIZED DRUG - OTHER] PO SCH (09:00)
[2021-06-20] MEDS: FUROSEMIDE 40 MG TABLET PO SCH (18:03)
[2021-06-21] MEDS: DILTIAZEM 60MG TAB PO SCH ×5 (00:13→22:47)
[2021-06-21 03:09] VITALS: BP 117/68
[2021-06-21 05:26] LABS: HEMATOCRIT 41.7 % (36-48); MEAN CORPUSCULAR HEMOGLOBIN 22.3 pg (27.0-33.0); MEAN CORPUSCULAR HGB CONC 28.8 g/dL (32.0-36.0); MEAN CORPUSCULAR VOLUME 77.4 fL (79-99); RED BLOOD CELL COUNT(AUTO) 5.39 MIL/uL (4.00-5.50); RED CELL DISTRIBUTION WIDTH 18.3 % (11.0-15.5); WHITE BLOOD COUNT (AUTO) 9.5 K/uL (4.8-10.8)
[2021-06-21 05:37] LABS: CREATININE 1.3 mg/dL (0.5-1.5); POTASSIUM 3.3 mmol/L (3.5-5.1)
[2021-06-21] MEDS: IPRATROPIUM 0.5 MG/2.5 ML INH IH SCH ×3 (06:47→18:19)
[2021-06-21] MEDS: INSULIN HUMULIN R 100 UNIT/ML 3ML SQ SCH ×4 (07:30→20:30)
[2021-06-21 08:11] VITALS: BP 130/71
[2021-06-21] MEDS: LEVOFLOXACIN 750 MG TABLET PO SCH (08:36)
[2021-06-21] MEDS: METFORMIN HCL 500 MG TABLET PO SCH (08:36)
[2021-06-21] MEDS: KCL 20 MEQ ERTAB PO SCH (08:37)
[2021-06-21] MEDS: FUROSEMIDE 40 MG TABLET PO SCH ×2 (08:37→17:58)
[2021-06-21] MEDS: APIXABAN 5 MG TABLET PO SCH ×2 (08:37→22:47)
[2021-06-21] MEDS: PREDNISONE 20 MG TABLET PO SCH (08:37)
[2021-06-21] MEDS: VIT D3 PO SCH (09:00)
[2021-06-21] MEDS: [UNRECOGNIZED DRUG - OTHER] PO SCH (09:00)
[2021-06-21] MEDS: BERBERINE HCL PO SCH (09:00)
[2021-06-21] MEDS: HOPS PO SCH (09:00)
[2021-06-21 12:34] VITALS: BP 102/55
[2021-06-21 16:13] VITALS: BP 137/58
[2021-06-21 19:00] VITALS: BP 135/58
[2021-06-22] VITALS (7 sets, daily range): BP systolic 96–141; BP diastolic 54–78
[2021-06-22] MEDS: IPRATROPIUM 0.5 MG/2.5 ML INH IH SCH ×4 (00:22→18:27)
[2021-06-22] MEDS: INSULIN HUMULIN R 100 UNIT/ML 3ML SQ SCH ×4 (05:42→20:12)
[2021-06-22] MEDS: DILTIAZEM 60MG TAB PO SCH ×3 (05:42→17:20)
[2021-06-22] MEDS: BERBERINE HCL PO SCH (09:00)
[2021-06-22] MEDS: HOPS PO SCH (09:00)
[2021-06-22] MEDS: VIT D3 PO SCH (09:00)
[2021-06-22] MEDS: [UNRECOGNIZED DRUG - OTHER] PO SCH (09:00)
[2021-06-22] MEDS: PREDNISONE 20 MG TABLET PO SCH (10:23)
[2021-06-22] MEDS: METFORMIN HCL 500 MG TABLET PO SCH (10:23)
[2021-06-22] MEDS: KCL 20 MEQ ERTAB PO SCH (10:24)
[2021-06-22] MEDS: APIXABAN 5 MG TABLET PO SCH ×2 (10:24→20:12)
[2021-06-22] MEDS: LEVOFLOXACIN 750 MG TABLET PO SCH (10:24)
[2021-06-22] MEDS: FUROSEMIDE 40 MG TABLET PO SCH ×2 (10:24→17:20)
[2021-06-23] MEDS: IPRATROPIUM 0.5 MG/2.5 ML INH IH SCH ×3 (00:12→11:26)
[2021-06-23] MEDS: DILTIAZEM 60MG TAB PO SCH ×3 (00:43→12:05)
[2021-06-23 04:00] VITALS: BP 107/59
[2021-06-23] MEDS: INSULIN HUMULIN R 100 UNIT/ML 3ML SQ SCH ×2 (05:48→11:30)
[2021-06-23 08:00] VITALS: BP 125/51
[2021-06-23] MEDS: FUROSEMIDE 40 MG TABLET PO SCH (08:42)
[2021-06-23] MEDS: PREDNISONE 20 MG TABLET PO SCH (08:42)
[2021-06-23] MEDS: LEVOFLOXACIN 750 MG TABLET PO SCH (08:43)
[2021-06-23] MEDS: BERBERINE HCL PO SCH (08:43)
[2021-06-23] MEDS: HOPS PO SCH (08:43)
[2021-06-23] MEDS: METFORMIN HCL 500 MG TABLET PO SCH (08:43)
[2021-06-23] MEDS: [UNRECOGNIZED DRUG - OTHER] PO SCH (08:43)
[2021-06-23] MEDS: VIT D3 PO SCH (08:43)
[2021-06-23] MEDS: APIXABAN 5 MG TABLET PO SCH (08:43)
[2021-06-23] MEDS: KCL 20 MEQ ERTAB PO SCH (08:43)
[2021-06-23 12:31] VITALS: BP 107/63
== END 2021-06-23 14:45 | disposition home or self-care (01) | DRG 291 ==
LOC: EDH 11:26 → OBSVTOIN 16:28 → EDHIP 16:28 → 4DH 23:15
PROVIDERS: ADMIT Internal Medicine; ATTEND Internal Medicine
PROC: 5A09357 Assistance with Respiratory Ventilation, Less than 24 Consecutive Hours, Continuous Positive Airway Pressure (ICD-10-PCS; principal; 2021-06-18)
DX: I11.0 Hypertensive heart disease with heart failure (principal); J96.21 Acute and chronic respiratory failure with hypoxia; J96.22 Acute and chronic respiratory failure with hypercapnia; I50.43 Acute on chronic combined systolic (congestive) and diastolic (congestive) heart failure; J44.1 Chronic obstructive pulmonary disease with (acute) exacerbation; E66.2 Morbid (severe) obesity with alveolar hypoventilation; Z68.41 Body mass index [BMI] 40.0-44.9, adult; I48.19 Other persistent atrial fibrillation; J98.4 Other disorders of lung; Z20.822 Contact with and (suspected) exposure to COVID-19; M19.90 Unspecified osteoarthritis, unspecified site; F32.A Depression, unspecified; E78.5 Hyperlipidemia, unspecified; E03.9 Hypothyroidism, unspecified; D64.9 Anemia, unspecified; E11.9 Type 2 diabetes mellitus without complications; F17.200 Nicotine dependence, unspecified, uncomplicated; E87.6 Hypokalemia; I25.10 Atherosclerotic heart disease of native coronary artery without angina pectoris; Z99.81 Dependence on supplemental oxygen; Z86.12 Personal history of poliomyelitis; Z79.01 Long term (current) use of anticoagulants; Z79.4 Long term (current) use of insulin; Z79.84 Long term (current) use of oral hypoglycemic drugs; Z91.81 History of falling; Z91.14 Patient's other noncompliance with medication regimen; Z82.49 Family history of ischemic heart disease and other diseases of the circulatory system
CPT/HCPCS: 36415; 36600; 71045; 71270; 80048; 80053; 81003; 82550; 82803; 82948; 83036; 83735; 83874; 83880; 84443; 84484; 85025; 85027; 85378; 85610; 87088; 87635; 87804; 93005; 93306; 93970; 94640; 94660; 97039; C9803; G0378; J0696; J1650; J1815; J1940; J1956; J2920; J2930; Q9967

== ENCOUNTER 2021-07-14 14:06 | Inpatient (IN) | payer MEDICARE ==
[~2021-07-14] VITALS: Ht 162.6 cm; Wt 107.4 kg
[~2021-07-14 14:06] MED LIST changes: +FERR324T4 PO; +LEVO125T11 PO; +LEVO5TAB13 PO; +PRAV20TA4 PO; -PRAV40TA3 PO; +SERT-440 PO; -SERT100T PO
[2021-07-14 14:59] LABS: BASOPHILS % (AUTO) 0.2 % (0.0-5.0); EOSINOPHILS % (AUTO) 1.2 % (0.0-8.0); HEMATOCRIT 37.4 % (36-48); LYMPHOCYTES % (AUTO) 11.6 % (21.0-51.0); MEAN CORPUSCULAR HEMOGLOBIN 23.1 pg (27.0-33.0); MEAN CORPUSCULAR HGB CONC 28.9 g/dL (32.0-36.0); MEAN CORPUSCULAR VOLUME 79.9 fL (79-99); MONOCYTES % (AUTO) 9.3 % (3.0-13.0); NEUTROPHILS % (AUTO) 77.7 % (40.0-77.0); PLATELET COUNT (AUTO) 177 K/uL (130-400); RED BLOOD CELL COUNT(AUTO) 4.68 MIL/uL (4.00-5.50); RED CELL DISTRIBUTION WIDTH 21.2 % (11.0-15.5); WHITE BLOOD COUNT (AUTO) 4.3 K/uL (4.8-10.8)
[2021-07-14] MEDS ORDERED: PRAV20TA4 PO (15:07)
[2021-07-14] MEDS ORDERED: DILT180C89 PO (15:07)
[2021-07-14] MEDS ORDERED: PANT40GR PO (15:07)
[2021-07-14] MEDS ORDERED: LOSA25TA41 PO (15:07)
[2021-07-14 15:11] LABS: CREATININE 0.8 mg/dL (0.5-1.5); POTASSIUM 3.1 mmol/L (3.5-5.1)
[2021-07-14] MEDS ORDERED: DILTIAZEM 125 MG/25 ML INJ IV ONE (15:13)
[2021-07-14] MEDS ORDERED: 0.9%NACL 100ML 100 ML ONE (15:14)
[2021-07-14 15:26] LABS: ALBUMIN 3.2 g/dL (3.5-5.0); BILIRUBIN,TOTAL 0.9 mg/dL (0.2-1.0); TOTAL PROTEIN, SERUM 6.1 g/dL (6.0-8.3)
[2021-07-14 15:28] LABS: B-TYPE NATRIURETIC PEPTIDE 159 pg/mL (0-100)
[2021-07-14] MEDS ORDERED: DILTIAZEM 125 MG/25 ML INJ 125 MG in 0.9%NACL 100ML 100 ML IV SCH ×2 (15:30→17:30)
[2021-07-14] MEDS ORDERED: FUROSEMIDE 40MG VIAL IV ONE (15:30)
[2021-07-14] MEDS ORDERED: IPRATROPIUM/ALBUTEROL SULFATE 3 ML SOLUTION IH ONE ×3 (16:00→17:00)
[2021-07-14 16:13] LABS: MAGNESIUM 1.9 mg/dL (1.80-2.40)
[2021-07-14] MEDS ORDERED: DiphenhydrAMINE HCL 50 MG/ML VIAL ONE (16:30)
[2021-07-14] MEDS ORDERED: KCL 20 MEQ ERTAB PO ONE (16:30)
[2021-07-14 16:54] LABS: INR 1.18 (0.85-1.15); PROTHROMBIN TIME 12.7 SEC (9.6-11.6)
[2021-07-14 16:56] LABS: PARTIAL THROMBOPLASTIN TIME 30.5 SEC (26.3-35.5)
[2021-07-14] MEDS ORDERED: DiphenhydrAMINE HCL 50 MG/ML VIAL IV ONE (17:30)
[2021-07-14] MEDS: CEFTRIAXONE 1G VIAL IVP SCH (17:46)
[2021-07-14] MEDS ORDERED: TRELEGY ELLIPTA IH SCH (19:00)
[2021-07-14] MEDS ORDERED: [UNRECOGNIZED DRUG - OTHER] IH SCH (19:00)
[2021-07-14] MEDS: DILTIAZEM 60MG TAB PO SCH (19:41)
[2021-07-14] MEDS: METFORMIN HCL 500 MG TABLET PO SCH (20:37)
[2021-07-14] MEDS: APIXABAN 5 MG TABLET PO SCH (20:37)
[2021-07-14] MEDS: KCL 20 MEQ ERTAB PO SCH (20:37)
[2021-07-14] MEDS: SOLU-MEDROL 40MG VIAL IVP SCH (20:37)
[2021-07-14] MEDS: SIMVASTATIN 10 MG TABLET PO SCH (20:37)
[2021-07-14] MEDS: (Levocetirizine Dihydrochloride 5 MG) PO SCH (20:38)
[2021-07-14] MEDS: IPRATROPIUM/ALBUTEROL SULFATE 3 ML SOLUTION IH PRN (20:42)
[2021-07-15] MEDS: DILTIAZEM 60MG TAB PO SCH (01:13)
[2021-07-15 05:45] VITALS: BP 135/87
[2021-07-15] MEDS: LEVOTHYROXINE 125 MCG TABLET PO SCH (05:54)
[2021-07-15] MEDS: FUROSEMIDE 40MG VIAL IV SCH ×2 (05:54→18:21)
[2021-07-15 06:51] LABS: BASOPHILS % (AUTO) 0.2 % (0.0-5.0); HEMATOCRIT 39.5 % (36-48); LYMPHOCYTES % (AUTO) 5.4 % (21.0-51.0); MEAN CORPUSCULAR HEMOGLOBIN 22.8 pg (27.0-33.0); MEAN CORPUSCULAR HGB CONC 28.4 g/dL (32.0-36.0); MEAN CORPUSCULAR VOLUME 80.4 fL (79-99); MONOCYTES % (AUTO) 1.5 % (3.0-13.0); NEUTROPHILS % (AUTO) 92.7 % (40.0-77.0); PLATELET COUNT (AUTO) 202 K/uL (130-400); RED BLOOD CELL COUNT(AUTO) 4.91 MIL/uL (4.00-5.50); RED CELL DISTRIBUTION WIDTH 21.2 % (11.0-15.5); WHITE BLOOD COUNT (AUTO) 4.1 K/uL (4.8-10.8)
[2021-07-15 07:26] LABS: ALBUMIN 3.3 g/dL (3.5-5.0); POTASSIUM 3.7 mmol/L (3.5-5.1); TOTAL PROTEIN, SERUM 6.6 g/dL (6.0-8.3)
[2021-07-15 08:00] VITALS: BP 126/60
[2021-07-15] MEDS: ***HM***(Ubidecarenone (Coq-10) 100 MG) PO SCH (09:00)
[2021-07-15] MEDS: BERBERINE HCL PO SCH (09:00)
[2021-07-15] MEDS: [UNRECOGNIZED DRUG - OTHER] PO SCH (09:00)
[2021-07-15] MEDS: HOPS PO SCH (09:00)
[2021-07-15] MEDS ORDERED: NON-FORMULARY MEDICATION 1 EACH (Pravastatin Sodium 20 MG) PO SCH (09:00)
[2021-07-15] MEDS ORDERED: OLMESARTAN MEDOXOMIL 5 MG PO SCH (09:00)
[2021-07-15] MEDS: VIT D3 PO SCH (09:00)
[2021-07-15] MEDS: PANTOPRAZOLE 40 MG TAB DR PO SCH (09:24)
[2021-07-15] MEDS: LOSARTAN 25 MG TABLET PO SCH (09:24)
[2021-07-15] MEDS: SERTRALINE HCL 50 MG TABLET PO SCH (09:24)
[2021-07-15] MEDS: FERROUS SULFATE 325 MG TABLET.DR PO SCH (09:24)
[2021-07-15] MEDS: METFORMIN HCL 500 MG TABLET PO SCH ×2 (09:24→20:14)
[2021-07-15] MEDS: KCL 20 MEQ ERTAB PO SCH ×2 (09:25→20:14)
[2021-07-15] MEDS: DILTIAZEM 180MG SR CAP PO SCH (09:25)
[2021-07-15] MEDS: SOLU-MEDROL 40MG VIAL IVP SCH ×2 (09:25→20:13)
[2021-07-15] MEDS: APIXABAN 5 MG TABLET PO SCH ×2 (09:25→20:13)
[2021-07-15] MEDS: IPRATROPIUM/ALBUTEROL SULFATE 3 ML SOLUTION IH PRN ×3 (11:06→18:53)
[2021-07-15 12:00] VITALS: BP 135/70
[2021-07-15] MEDS: METOPROLOL SUCCINATE 50 MG TAB.SR.24H PO SCH (12:28)
[2021-07-15 16:00] VITALS: BP 113/62
[2021-07-15] MEDS: CEFTRIAXONE 1G VIAL IVP SCH (18:21)
[2021-07-15 20:00] VITALS: BP 108/49
[2021-07-15] MEDS: SIMVASTATIN 10 MG TABLET PO SCH (20:14)
[2021-07-15] MEDS: (Levocetirizine Dihydrochloride 5 MG) PO SCH (20:14)
[2021-07-16] VITALS: BP 112/79
[2021-07-16] MEDS: IPRATROPIUM/ALBUTEROL SULFATE 3 ML SOLUTION IH PRN ×2 (00:31→18:37)
[2021-07-16 04:00] VITALS: BP 140/67
[2021-07-16] MEDS: LEVOTHYROXINE 125 MCG TABLET PO SCH (06:03)
[2021-07-16] MEDS: FUROSEMIDE 40MG VIAL IV SCH ×2 (06:03→18:04)
[2021-07-16 08:00] VITALS: BP 109/51
[2021-07-16] MEDS ORDERED: POTASSIUM CHLORIDE 10% ELIXIR 20 MEQ/15 ML UDCUP PO PRN (08:00)
[2021-07-16] MEDS ORDERED: POTASSIUM CHLORIDE 20MEQ/100ML 100 ML IV PRN (08:00)
[2021-07-16] MEDS ORDERED: KCL 20 MEQ ERTAB PO PRN (08:00)
[2021-07-16] MEDS: BERBERINE HCL PO SCH (09:00)
[2021-07-16] MEDS: [UNRECOGNIZED DRUG - OTHER] PO SCH (09:00)
[2021-07-16] MEDS: VIT D3 PO SCH (09:00)
[2021-07-16] MEDS: HOPS PO SCH (09:00)
[2021-07-16] MEDS: ***HM***(Ubidecarenone (Coq-10) 100 MG) PO SCH (09:00)
[2021-07-16] MEDS: METOPROLOL SUCCINATE 50 MG TAB.SR.24H PO SCH ×2 (09:07→20:06)
[2021-07-16] MEDS: LOSARTAN 25 MG TABLET PO SCH (09:07)
[2021-07-16] MEDS: APIXABAN 5 MG TABLET PO SCH ×2 (09:07→20:06)
[2021-07-16] MEDS: PREDNISONE 20 MG TABLET PO SCH (09:08)
[2021-07-16] MEDS: SERTRALINE HCL 50 MG TABLET PO SCH (09:08)
[2021-07-16] MEDS: PANTOPRAZOLE 40 MG TAB DR PO SCH (09:08)
[2021-07-16] MEDS: FERROUS SULFATE 325 MG TABLET.DR PO SCH (09:08)
[2021-07-16] MEDS: METFORMIN HCL 500 MG TABLET PO SCH ×2 (09:08→20:07)
[2021-07-16] MEDS: KCL 20 MEQ ERTAB PO SCH ×2 (09:09→20:09)
[2021-07-16] MEDS: DILTIAZEM 180MG SR CAP PO SCH (09:09)
[2021-07-16 12:00] VITALS: BP 117/81
[2021-07-16] MEDS: CEFTRIAXONE 1G VIAL IVP SCH (18:04)
[2021-07-16 18:46] VITALS: BP 124/57
[2021-07-16 20:00] VITALS: BP 134/58
[2021-07-16] MEDS: SIMVASTATIN 10 MG TABLET PO SCH (20:06)
[2021-07-16] MEDS: NYSTATIN 15 GM POWDER TP SCH (20:10)
[2021-07-16] MEDS: (Levocetirizine Dihydrochloride 5 MG) PO SCH (20:13)
[2021-07-17] VITALS: BP 135/71
[2021-07-17 04:00] VITALS: BP 117/72
[2021-07-17 04:34] LABS: HEMATOCRIT 39.7 % (36-48); MEAN CORPUSCULAR HGB CONC 28.5 g/dL (32.0-36.0); MEAN CORPUSCULAR VOLUME 80.7 fL (79-99); RED BLOOD CELL COUNT(AUTO) 4.92 MIL/uL (4.00-5.50); RED CELL DISTRIBUTION WIDTH 20.7 % (11.0-15.5); WHITE BLOOD COUNT (AUTO) 12.7 K/uL (4.8-10.8)
[2021-07-17 04:52] LABS: ALBUMIN 3.2 g/dL (3.5-5.0); BILIRUBIN,TOTAL 0.5 mg/dL (0.2-1.0); CREATININE 0.9 mg/dL (0.5-1.5); TOTAL PROTEIN, SERUM 6.4 g/dL (6.0-8.3)
[2021-07-17] MEDS: FUROSEMIDE 40MG VIAL IV SCH ×3 (05:21→21:24)
[2021-07-17] MEDS: LEVOTHYROXINE 125 MCG TABLET PO SCH (05:24)
[2021-07-17] MEDS: IPRATROPIUM/ALBUTEROL SULFATE 3 ML SOLUTION IH PRN (07:01)
[2021-07-17 08:00] VITALS: BP 106/66
[2021-07-17] MEDS: METOPROLOL SUCCINATE 50 MG TAB.SR.24H PO SCH ×3 (08:35→21:25)
[2021-07-17] MEDS: ***HM***(Ubidecarenone (Coq-10) 100 MG) PO SCH (08:35)
[2021-07-17] MEDS: [UNRECOGNIZED DRUG - OTHER] PO SCH (08:36)
[2021-07-17] MEDS: HOPS PO SCH (08:36)
[2021-07-17] MEDS: BERBERINE HCL PO SCH (08:36)
[2021-07-17] MEDS: VIT D3 PO SCH (08:36)
[2021-07-17] MEDS: SERTRALINE HCL 50 MG TABLET PO SCH (09:25)
[2021-07-17] MEDS: METFORMIN HCL 500 MG TABLET PO SCH ×2 (09:25→21:24)
[2021-07-17] MEDS: PREDNISONE 20 MG TABLET PO SCH (09:25)
[2021-07-17] MEDS: DILTIAZEM 180MG SR CAP PO SCH (09:26)
[2021-07-17] MEDS: FERROUS SULFATE 325 MG TABLET.DR PO SCH (09:26)
[2021-07-17] MEDS: PANTOPRAZOLE 40 MG TAB DR PO SCH (09:26)
[2021-07-17] MEDS: APIXABAN 5 MG TABLET PO SCH ×2 (09:27→21:24)
[2021-07-17] MEDS: KCL 20 MEQ ERTAB PO SCH ×2 (09:27→21:26)
[2021-07-17] MEDS: NYSTATIN 15 GM POWDER TP SCH ×2 (09:30→21:29)
[2021-07-17] MEDS: IPRATROPIUM/ALBUTEROL SULFATE 3 ML SOLUTION IH SCH ×3 (11:18→23:34)
[2021-07-17 11:43] VITALS: BP 111/54
[2021-07-17] MEDS: LOSARTAN 25 MG TABLET PO SCH (13:47)
[2021-07-17 16:00] VITALS: BP 106/70
[2021-07-17] MEDS: CEFTRIAXONE 1G VIAL IVP SCH (17:06)
[2021-07-17 20:00] VITALS: BP 126/72
[2021-07-17] MEDS: (Levocetirizine Dihydrochloride 5 MG) PO SCH (21:00)
[2021-07-17] MEDS: SIMVASTATIN 10 MG TABLET PO SCH (21:27)
[2021-07-18] VITALS: BP 129/70
[2021-07-18 03:59] LABS: HEMATOCRIT 41.8 % (36-48); MEAN CORPUSCULAR HEMOGLOBIN 23.4 pg (27.0-33.0); MEAN CORPUSCULAR HGB CONC 28.7 g/dL (32.0-36.0); MEAN CORPUSCULAR VOLUME 81.5 fL (79-99); RED BLOOD CELL COUNT(AUTO) 5.13 MIL/uL (4.00-5.50); RED CELL DISTRIBUTION WIDTH 20.9 % (11.0-15.5); WHITE BLOOD COUNT (AUTO) 7.6 K/uL (4.8-10.8)
[2021-07-18 04:00] VITALS: BP 115/64
[2021-07-18 04:27] LABS: ALBUMIN 3.3 g/dL (3.5-5.0); BILIRUBIN,TOTAL 0.7 mg/dL (0.2-1.0); POTASSIUM 3.8 mmol/L (3.5-5.1); TOTAL PROTEIN, SERUM 6.3 g/dL (6.0-8.3)
[2021-07-18] MEDS: FUROSEMIDE 40MG VIAL IV SCH (06:08)
[2021-07-18] MEDS: LEVOTHYROXINE 125 MCG TABLET PO SCH (06:09)
[2021-07-18] MEDS: IPRATROPIUM/ALBUTEROL SULFATE 3 ML SOLUTION IH SCH ×4 (06:16→23:05)
[2021-07-18 08:34] VITALS: BP 100/52
[2021-07-18] MEDS: ***HM***(Ubidecarenone (Coq-10) 100 MG) PO SCH (09:00)
[2021-07-18] MEDS: PREDNISONE 20 MG TABLET PO SCH (09:23)
[2021-07-18] MEDS: LOSARTAN 25 MG TABLET PO SCH (09:23)
[2021-07-18] MEDS: METFORMIN HCL 500 MG TABLET PO SCH ×2 (09:24→20:50)
[2021-07-18] MEDS: PANTOPRAZOLE 40 MG TAB DR PO SCH (09:24)
[2021-07-18] MEDS: APIXABAN 5 MG TABLET PO SCH ×2 (09:24→20:50)
[2021-07-18] MEDS: FERROUS SULFATE 325 MG TABLET.DR PO SCH (09:25)
[2021-07-18] MEDS: SERTRALINE HCL 50 MG TABLET PO SCH (09:32)
[2021-07-18] MEDS: KCL 20 MEQ ERTAB PO SCH ×2 (09:32→20:49)
[2021-07-18] MEDS: NYSTATIN 15 GM POWDER TP SCH ×2 (09:33→20:53)
[2021-07-18] MEDS: METOPROLOL SUCCINATE 50 MG TAB.SR.24H PO SCH ×2 (09:52→20:50)
[2021-07-18 11:37] VITALS: BP 118/74
[2021-07-18 17:08] VITALS: BP 107/72
[2021-07-18] MEDS: CEFTRIAXONE 1G VIAL IVP SCH (18:02)
[2021-07-18 20:00] VITALS: BP 122/57
[2021-07-18] MEDS: SIMVASTATIN 10 MG TABLET PO SCH (20:50)
[2021-07-18] MEDS: (Levocetirizine Dihydrochloride 5 MG) PO SCH (20:58)
[2021-07-19] VITALS: BP 108/68
[2021-07-19 04:00] VITALS: BP 111/62
[2021-07-19 05:39] LABS: ABG BASE EXCESS 19.3 mmol/L (-2.0-3.0); ABG HCO3 47.3 mmol/L (21.0-28.0); ABG OXYGEN SATURATION 93.6 % (95.0-99.0); ABG PCO2 67 mmHg (32-45)
[2021-07-19] MEDS: LEVOTHYROXINE 125 MCG TABLET PO SCH (05:39)
[2021-07-19 05:42] LABS: HEMATOCRIT 44.4 % (36-48); MEAN CORPUSCULAR HEMOGLOBIN 22.7 pg (27.0-33.0); MEAN CORPUSCULAR HGB CONC 27.7 g/dL (32.0-36.0); MEAN CORPUSCULAR VOLUME 81.9 fL (79-99); RED BLOOD CELL COUNT(AUTO) 5.42 MIL/uL (4.00-5.50); RED CELL DISTRIBUTION WIDTH 20.8 % (11.0-15.5); WHITE BLOOD COUNT (AUTO) 7.9 K/uL (4.8-10.8)
[2021-07-19 05:50] LABS: CREATININE 0.9 mg/dL (0.5-1.5); POTASSIUM 4.3 mmol/L (3.5-5.1)
[2021-07-19] MEDS ORDERED: GUAIFENESIN-DM 200/20 MG 10 ML PO PRN (06:00)
[2021-07-19] MEDS: IPRATROPIUM/ALBUTEROL SULFATE 3 ML SOLUTION IH SCH ×3 (06:56→17:49)
[2021-07-19 08:17] VITALS: BP 153/64
[2021-07-19] MEDS: NYSTATIN 15 GM POWDER TP SCH (09:00)
[2021-07-19] MEDS ORDERED: HOME MEDICATION 1 EACH IH SCH (09:00)
[2021-07-19] MEDS: ***HM***(Ubidecarenone (Coq-10) 100 MG) PO SCH (09:00)
[2021-07-19] MEDS ORDERED: UMECLIDINIUM IH SCH (09:00)
[2021-07-19] MEDS ORDERED: FLUTICASONE FUROATE IH SCH (09:00)
[2021-07-19] MEDS ORDERED: VILANTEROL IH SCH (09:00)
[2021-07-19] MEDS ORDERED: CA 600MG+VIT D 400 UNIT TAB 1 TAB TABLET PO SCH (09:00)
[2021-07-19] MEDS: METOPROLOL SUCCINATE 50 MG TAB.SR.24H PO SCH (11:09)
[2021-07-19] MEDS: SERTRALINE HCL 50 MG TABLET PO SCH (11:09)
[2021-07-19] MEDS: FERROUS SULFATE 325 MG TABLET.DR PO SCH (11:10)
[2021-07-19] MEDS: PREDNISONE 20 MG TABLET PO SCH (11:10)
[2021-07-19] MEDS: APIXABAN 5 MG TABLET PO SCH (11:10)
[2021-07-19] MEDS: PANTOPRAZOLE 40 MG TAB DR PO SCH (11:10)
[2021-07-19] MEDS: LOSARTAN 25 MG TABLET PO SCH (11:11)
[2021-07-19] MEDS: KCL 20 MEQ ERTAB PO SCH (11:15)
[2021-07-19 11:38] VITALS: BP 121/66
[2021-07-19 16:00] VITALS: BP 103/51
[2021-07-19] MEDS ORDERED: ACETAMINOPHEN 325 MG TAB PO PRN (16:00)
[2021-07-19] MEDS ORDERED: METFORMIN HCL 500 MG TABLET PO SCH (17:00)
[2021-07-19] MEDS: CEFTRIAXONE 1G VIAL IVP SCH (17:50)
[2021-07-19] MEDS ORDERED: CETIRIZINE HCL 5 MG TABLET PO SCH (21:00)
== END 2021-07-19 19:30 | disposition home or self-care (01) | DRG 308 ==
LOC: EDH 14:06 → EDHIP 17:30 → OBSVTOIN 17:30 → 4DH 07-15 05:43
PROVIDERS: ADMIT Internal Medicine; ATTEND Internal Medicine
DX: I48.91 Unspecified atrial fibrillation (principal); I50.41 Acute combined systolic (congestive) and diastolic (congestive) heart failure; J44.1 Chronic obstructive pulmonary disease with (acute) exacerbation; Z68.41 Body mass index [BMI] 40.0-44.9, adult; I11.0 Hypertensive heart disease with heart failure; I25.5 Ischemic cardiomyopathy; E11.9 Type 2 diabetes mellitus without complications; E66.9 Obesity, unspecified; E87.6 Hypokalemia; F32.A Depression, unspecified; I25.10 Atherosclerotic heart disease of native coronary artery without angina pectoris; E03.9 Hypothyroidism, unspecified; E78.5 Hyperlipidemia, unspecified; Z79.01 Long term (current) use of anticoagulants; Z99.81 Dependence on supplemental oxygen; Z90.710 Acquired absence of both cervix and uterus; Z82.49 Family history of ischemic heart disease and other diseases of the circulatory system
CPT/HCPCS: 36415; 36600; 71045; 80048; 80053; 82550; 82803; 82948; 83735; 83880; 84484; 85025; 85027; 85610; 85730; 93005; 94640; 94644; 94664; 99291; G0378; J0696; J1200; J1940; J2920; J3490